=== PATIENT | male | born 1975 | race Caucasian/White ===

== ENCOUNTER 2023-08-18 13:53 | Outpatient (RCR) | payer BC, SELFPAY ==
[2023-08-18 14:00] VITALS: BP 162/102; PULSE 62
--- NOTE | 2023-08-18 15:35 | MHC.PT.EP ---
[facility] [place] [facility] [place] [facility] [place] [facility] [address] Anita Lowery [address] [phone] F: [phone] F: [phone] F: [phone] F: [phone] Physical Therapy Plan of Care Date of Evaluation: 08/18/23 Date of Surgery: NA Diagnosis: Vestibular rehab Assessment: Jerson is a 48 year old male who is referred to PT for vestibular rehab . He reports of having sudden onset of dizziness on 07/28/23. His symptoms initially started as room spinning . He was diagnosed with Lyme's disease a few days after and has been on antibiotics for the same. His symptoms of room spinning dizziness resolved however he currently reports of having wooziness with looking down to up, turning head from L to R and rolling in bed. He also reports of having imbalance with walking. He denies having any nausea or vomiting. On PT examination he presented with elevated BP - 162/102 and repeat after 5 mins was 160/106. He intact saccades, smooth pursuit, visual tracking and negative VBI. He however had impaired head thrust to the R. He was negative for BPPV in B [place] pikes and B roll test. His BP post BPPV was assessment was 170/116. Balance testing deferred today due to elevated BP. Jerson advised to go to ED or urgent care for management of the same as he does not have a PCP. Attempted to call Dr. David's office on 08/17 at 3pm however their office was closed. I will call them on 08/18. No further PT appointments were made at this time. 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 Frequency and Duration: The patient will be seen Short Term Goals: Alf Goals: Treatment Plan: Modalities to reduce pain, spasms and effusion. Manual therapy to restore motion and function. Therapeutic exercise to improve strength and flexibility. Neuromuscular re-education for posture and balance. Therapeutic activities to return to functional activities of daily living. Electronically signed by: Gali Gillette, PT DPT Please sign and return to therapist. Thank you for your referral.
--- NOTE | 2024-01-11 08:44 | MHC.PT.DC ---
[facility] [place] [facility] [place] [facility] [place] [facility] [address] Anita Lowery [address] [phone] F: [phone] F: [phone] F: [phone] F: [phone] Physical Therapy Discharge Report Diagnosis: Vestibular rehab Date of Surgery: NA Date of Evaluation: 08/18/23 Date of Discharge: 01/11/24 Treatments to Date: 1 Cancellations to Date: 0 No Shows to Date: Discharge Status: Discharge Summary: Jerson had elevated BP during his evaluation. He was suppose to return to PT after BP management however he did not. He is therefore being d/c from PT. Electronically signed by: Gali Gillette PT DPT Please sign and return to therapist. Thank you for your referral.
== END 2024-01-11 08:45 | disposition home or self-care (01) ==
LOC: HO.PT 13:53
PROVIDERS: Visit Provider Otolaryngology
DX: H81.93 Unspecified disorder of vestibular function, bilateral (principal)
CPT/HCPCS: 97110; 97162